=== PATIENT | female | born 1975 | race Two or more races ===

== ENCOUNTER 2024-12-21 06:00 | Day surgery (SDC) | payer OTHER ==
[2024-12-14 10:38] LABS: URINE APPEARANCE Clear; URINE BILIRRUBIN Negative (NEGATIVE); URINE BLOOD Negative; URINE COLOR Yellow; URINE GLUCOSE Negative (NEGATIVE); URINE KETONE Negative (NEGATIVE); URINE LEUKOCYTE Negative; URINE NITRATE Negative; URINE PROTEIN Negative (NEGATIVE); URINE UROBILINOGEN 0.2 E.U./dl
[2024-12-14 10:41] VITALS: BP 104/69
[2024-12-14 10:41] LABS: BASO % 0.6 % (0.1-1.2); EOS # 0.11 (0.04-0.54); EOS % 1.7 % (0.7-7.0); LYMPH # 1.87 (1.18-3.74); LYMPH % 28.9 % (19.3-53.1); MEAN PLATELET VOLUME 9.50 fl (9.4-12.4); MONO # 0.48 (0.24-0.82); MONO % 7.4 % (4.7-12.5); NEUT # 3.95 (1.56-6.13); NEUT % 61.2 % (34.0-71.1); RED CELL DISTRIBUTION WIDTH 13.7 % (11.6-14.4)
[2024-12-14 10:42] LABS: URINE BACTERIA 27.6 uL (0.0-1933); URINE EPITHELIAL CELLS 1.9 uL (0.0-38.8); URINE RBC 3.6 uL (0.0-20.8)
[2024-12-14 10:47] LABS: URINE CAST 0.00 uL (0.0-1.40); URINE WBC 0.6 uL (0.0-23.2)
[2024-12-14 11:06] LABS: ALT/SGPT 31.0 U/L (12-78); AST/SGOT 21.0 U/L (15-37); BILIRUBIN TOTAL 0.57 mg/dL (0.3-1.2); BUN CREA RATIO 24.0 (7.0-25.0); CREATININE SERUM 0.51 mg/dL (0.55-1.02); GFR 127.64; GLOBULINA 4.2 G/DL (2.4-3.5); GLUCOSE FASTING 88.0 mg/dL (65-100); OSMOLALITY SERUM 279.0 MOSM/KG (275-295)
[2024-12-14 11:12] LABS: INR 1.0
[~2024-12-21] VITALS: Ht 165.1 cm; Wt 107.0 kg
[~2024-12-21 06:00] MED LIST: METFORMIN HCL1000 M2 PO; ROSUVASTATIN CA20 MG; TOPROL XL50 M1 PO; VITAMIN B-121000 MC4 PO
[2024-12-21] MEDS ORDERED: CEFAZOLIN SODIUM 1,000 MG VIAL IV ONE ×2 (11:30→14:00)
[2024-12-21] MEDS ORDERED: POVIDONE-IODINE 118 ML BOTT TOP ONE (11:30)
[2024-12-21] MEDS ORDERED: KETOROLAC TROMETHAMINE 10 MG TABLET PO ONE (12:30)
[2024-12-21] MEDS ORDERED: MORPHINE SULFATE 4 MG/ML VIAL IV ONE (12:35)
== END 2024-12-21 13:55 | disposition home or self-care (01) ==
LOC: CIR.AMB 06:00
PROVIDERS: ATTEND Obstetrics & Gynecology
DX: N84.0 Polyp of corpus uteri (principal); N95.0 Postmenopausal bleeding; D25.0 Submucous leiomyoma of uterus

== ENCOUNTER 2025-02-14 07:15 | Inpatient (IN) | payer OTHER ==
[~2025-02-14] VITALS: Ht 165.1 cm; Wt 108.9 kg
[2025-02-14 09:29] LABS: BASO % 0.5 % (0.1-1.2); EOS # 0.10 (0.04-0.54); EOS % 1.8 % (0.7-7.0); LYMPH # 1.99 (1.18-3.74); LYMPH % 35.0 % (19.3-53.1); MEAN PLATELET VOLUME 9.80 fl (9.4-12.4); MONO # 0.49 (0.24-0.82); MONO % 8.6 % (4.7-12.5); NEUT # 3.07 (1.56-6.13); NEUT % 53.9 % (34.0-71.1); RED CELL DISTRIBUTION WIDTH 13.0 % (11.6-14.4)
[2025-02-14 09:36] LABS: URINE APPEARANCE Clear; URINE BILIRRUBIN Negative (NEGATIVE); URINE BLOOD Negative; URINE COLOR Yellow; URINE GLUCOSE Negative (NEGATIVE); URINE KETONE Negative (NEGATIVE); URINE LEUKOCYTE Negative; URINE NITRATE Negative; URINE PROTEIN Negative (NEGATIVE); URINE UROBILINOGEN 0.2 E.U./dl
[2025-02-14 09:47] VITALS: BP 114/80
[2025-02-14 09:52] LABS: URINE BACTERIA 2.3 uL (0.0-1933); URINE CAST 0.00 uL (0.0-1.40); URINE EPITHELIAL CELLS 0.6 uL (0.0-38.8); URINE RBC 1.4 uL (0.0-20.8); URINE WBC 0.9 uL (0.0-23.2)
[2025-02-14 09:54] LABS: INR 0.98
[2025-02-14 10:04] LABS: ALT/SGPT 29.0 U/L (12-78); AST/SGOT 22.0 U/L (15-37); BILIRUBIN TOTAL 0.54 mg/dL (0.3-1.2); BUN CREA RATIO 24.0 (7.0-25.0); CREATININE SERUM 0.54 mg/dL (0.55-1.02); GFR 119.5; GLOBULINA 3.7 G/DL (2.4-3.5); GLUCOSE FASTING 110.0 mg/dL (65-100); OSMOLALITY SERUM 280.0 MOSM/KG (275-295)
[2025-02-22] MEDS ORDERED: PANTOPRAZOLE SODIUM 40 MG/VIAL VIAL ONE (08:18)
[2025-02-22] MEDS ORDERED: CEFAZOLIN SODIUM 1,000 MG VIAL ONE (08:21)
[2025-02-22] MEDS ORDERED: POVIDONE-IODINE 118 ML BOTT TOP ONE (10:15)
[2025-02-22] MEDS ORDERED: SUGAMMADEX SODIUM 200 MG/2 ML VIAL IV ONE (12:14)
[2025-02-22] MEDS ORDERED: MORPHINE SULFATE 4 MG/ML VIAL IV PRN (15:00)
[2025-02-22] MEDS ORDERED: DEXTROSE 50 % IN WATER 0.5 G/ML DISP.SYRIN IV PRN (16:15)
[2025-02-22] MEDS ORDERED: INSULIN LISPRO 1,000 UNIT/10 ML UNITS SUBCUTANEO PRN (16:15)
[2025-02-22 17:28] VITALS: BP 149/85
[2025-02-22] MEDS ORDERED: KETOROLAC TROMETHAMINE 60 MG VIAL IM NR (18:00)
[2025-02-23 02:41] VITALS: BP 145/88; O2SAT 100
[2025-02-23 07:38] LABS: BASO % 0.2 % (0.1-1.2); EOS # 0.00 (0.04-0.54); EOS % 0.0 % (0.7-7.0); LYMPH # 1.77 (1.18-3.74); LYMPH % 15.9 % (19.3-53.1); MEAN PLATELET VOLUME 10.70 fl (9.4-12.4); MONO # 1.02 (0.24-0.82); MONO % 9.2 % (4.7-12.5); NEUT # 8.30 (1.56-6.13); NEUT % 74.4 % (34.0-71.1); RED CELL DISTRIBUTION WIDTH 12.8 % (11.6-14.4)
[2025-02-23 08:00] VITALS: BP 133/79
[2025-02-23] MEDS ORDERED: KETOROLAC TROMETHAMINE 10 MG TABLET PO SCH (08:49)
[2025-02-23] MEDS ORDERED: CEFAZOLIN SODIUM 1,000 MG VIAL IV ONE (09:00)
[2025-02-23 16:32] VITALS: BP 119/68
[2025-02-24 01:54] VITALS: BP 121/75
[2025-02-24 08:00] VITALS: BP 114/64
== END 2025-02-24 11:45 | disposition home or self-care (01) | DRG 743 ==
LOC: O/R 02-22 07:00 → OB/GYN 02-22 07:00 → SURH 02-22 07:15 → OB/GYN 02-22 14:32
PROVIDERS: Obstetrics & Gynecology; ADMIT Obstetrics & Gynecology; ATTEND Obstetrics & Gynecology
PROC: 0UT70ZZ Resection of Bilateral Fallopian Tubes, Open Approach (ICD-10-PCS; 2025-02-22)
PROC: 0UT20ZZ Resection of Bilateral Ovaries, Open Approach (ICD-10-PCS; 2025-02-22)
PROC: 0DNW0ZZ Release Peritoneum, Open Approach (ICD-10-PCS; 2025-02-22)
PROC: 0DN80ZZ Release Small Intestine, Open Approach (ICD-10-PCS; 2025-02-22)
PROC: 0UT90ZZ Resection of Uterus, Open Approach (ICD-10-PCS; principal; 2025-02-22 08:15)
DX: D25.1 Intramural leiomyoma of uterus (principal); D27.1 Benign neoplasm of left ovary; D27.0 Benign neoplasm of right ovary; N85.02 Endometrial intraepithelial neoplasia [EIN]; N93.8 Other specified abnormal uterine and vaginal bleeding